=== PATIENT | female | born 1980 | race Caucasian/White ===

== ENCOUNTER 2016-05-06 16:57 | Emergency (ER) | payer OTHER, MEDICAID ==
[~2016-05-06] VITALS: Ht 157.5 cm; Wt 86.2 kg
[~2016-05-06 16:57] MED LIST: ACET500T68 PO; AMLO10TA2 PO; FLUO40CA9 PO; HYDR25TA9 PO; LISI40TA PO; MEDR150D3 IM; TRIA100A TP; VENTOLIN HFA18 GM INH
[2016-05-06 17:53] VITALS: BP 211/136
[2016-05-06] MEDS ORDERED: ONDANSETRON ODT 4 MG TAB.RAPDIS PO ONE (18:00)
[2016-05-06] MEDS ORDERED: LIDO:MAALOX:DONNATAL 1:1:1 15 ML SINGLE DOSE SWSW ONE (18:00)
--- NOTE | 2016-05-06 18:09 | PHYS DOC ---
Past Medical History Past Medical History: Asthma, Bipolar, Bronchitis, Gallstones, Hypertension Past Surgical History: No Surgical History Alcohol Use: None Drug Use: None Adult General Chief Complaint Chief Complaint: ABDOMINAL PAIN HPI HPI 36-year-old female presenting to the emergency department today with epigastric abdominal pain that is sharp intermittent and has been present for greater than a month. She has had one episode of nonbilious nonbloody vomiting. She denies constipation or diarrhea. She denies fevers chills. The pain radiates to her back. It is worse with food. She denies drinking regularly. She has a history of gallstones. Review of systems is negative for chest pain shortness of breath fevers chills. Positive for abdominal pain. All other review of systems is negative unless otherwise noted in history of present illness. Review of Systems Review of Systems SEE ABOVE Current Medications Current Medications Current Medications Medications (Trade) Dose Ordered Sig/Vita Start Time Stop Time Status Last Admin Dose Admin Metoprolol Tartrate (Lopressor) 50 mg 1X ONCE 05/06/16 21:00 05/06/16 21:01 DC Morphine Sulfate 2 mg 2 mg PRN Q2HR PRN 05/06/16 20:45 05/06/16 21:49 DC Multi-Ingredient Mouthwash/Gargle (Gi Cocktail Single Dose) 15 ml 1X ONCE 05/06/16 18:00 05/06/16 18:01 DC 05/06/16 18:16 15 ML Ondansetron HCl (Zofran Odt) 4 mg 1X ONCE 05/06/16 18:00 05/06/16 18:01 DC 05/06/16 18:17 4 MG Ondansetron HCl (Zofran) 4 mg PRN Q8HRS PRN 05/06/16 20:45 05/06/16 21:49 DC Potassium Chloride (Klor-Con) 40 meq 1X ONCE 05/06/16 21:00 05/06/16 21:01 DC 05/06/16 21:33 40 MEQ Sodium Chloride (Iv Sodium Chloride 0.9% 1000ml Bag) 1,000 ml @ 1,000 mls/hr 1X ONCE 05/06/16 21:00 05/06/16 21:49 DC Allergies Allergies Allergies Coded Allergies Type Severity Reaction Last Updated Verified No Known Drug Allergies 03/10/16 No Physical Exam Physical Exam Constitutional: Well developed, well nourished, no acute distress, non-toxic appearance. HENT: Normocephalic, atraumatic, bilateral external ears normal, oropharynx moist, no oral exudates, nose normal. [] Eyes: PERRLA, EOMI, conjunctiva normal, no discharge. [] Neck: Normal range of motion, no tenderness, supple, no stridor. Cardiovascular:Heart rate regular rhythm, no murmur [] Lungs & Thorax: Bilateral breath sounds clear to auscultation Abdomen: Soft, mild tenderness in the epigastric region. Negative McBurney's point. Negative Smyth sign. No rebound tenderness or guarding present. Nondistended. Skin: Warm, dry, no erythema, no rash. [] Back: No tenderness, no CVA tenderness. [] Extremities: No tenderness, no cyanosis, no clubbing, ROM intact, no edema. Neurologic: Alert and oriented X 3, normal motor function, normal sensory function, no focal deficits noted. [] Psychologic: Affect normal, judgement normal, mood normal. [] Current Patient Data Vital Signs Vital Signs Date Time Temp Pulse Resp B/P Pulse Ox O2 Delivery O2 Flow Rate FiO2 05/06/16 17:53 98.7 99 18 211/136 99 Room Air 98.7 Lab Values Laboratory Tests Test 05/06/16 18:00 05/06/16 18:07 05/06/16 18:21 White Blood Count 12.4x10^3/uL (4.0-11.0) H Red Blood Count 4.52x10^6/uL (3.50-5.40) Hemoglobin 12.7g/dL (12.0-15.5) Hematocrit 38.6% (36.0-47.0) Mean Corpuscular Volume 85fL (79-100) Mean Corpuscular Hemoglobin 28pg (25-35) Mean Corpuscular Hemoglobin Concent 33g/dL (31-37) Red Cell Distribution Width 15.6% (11.5-14.5) H Platelet Count 206x10^3/uL (140-400) Neutrophils (%) (Auto) 76% (31-73) H Lymphocytes (%) (Auto) 15% (24-48) L Monocytes (%) (Auto) 6% (0-9) Eosinophils (%) (Auto) 2% (0-3) Basophils (%) (Auto) 1% (0-3) Neutrophils # (Auto) 9.4x10^3uL (1.8-7.7) H Lymphocytes # (Auto) 1.9x10^3/uL (1.0-4.8) Monocytes # (Auto) 0.8x10^3/uL (0.0-1.1) Eosinophils # (Auto) 0.2x10^3/uL (0.0-0.7) Basophils # (Auto) 0.1x10^3/uL (0.0-0.2) Sodium Level 144mmol/L (136-145) Potassium Level 2.8mmol/L (3.5-5.1) *L Chloride Level 105mmol/L (98-107) Carbon Dioxide Level 23mmol/L (21-32) Anion Gap 16 (6-14) H Blood Urea Nitrogen 15mg/dL (7-20) Creatinine 2.4mg/dL (0.6-1.0) H Estimated GFR (Cockcroft-Gault) 22.8 BUN/Creatinine Ratio 6 (6-20) Glucose Level 86mg/dL (70-99) Calcium Level 9.2mg/dL (8.5-10.1) Total Bilirubin 0.3mg/dL (0.2-1.0) Aspartate Amino Transferase (AST) 26U/L (15-37) Alanine Aminotransferase (ALT) 28U/L (14-59) Alkaline Phosphatase 129U/L (46-116) H Total Protein 7.1g/dL (6.4-8.2) Albumin 2.4g/dL (3.4-5.0) L Albumin/Globulin Ratio 0.5 (1.0-1.7) L Lipase 178U/L (73-393) Urine Collection Type Unknown Urine Color Yellow Urine Clarity Clear Urine pH 6.5 Urine Specific [place] 1.020 Urine Protein >=300mg/dL (NEG-TRACE) Urine Glucose (UA) Negativemg/dL (NEG) Urine Ketones (Stick) Negativemg/dL (NEG) Urine Blood Small (NEG) Urine Nitrite Negative (NEG) Urine Bilirubin Negative (NEG) Urine Urobilinogen Dipstick 0.2mg/dL (0.2 mg/dL) Urine Leukocyte Esterase Negative (NEG) Urine RBC 6-10/HPF (0-2) Urine WBC 1-4/HPF (0-4) Urine Squamous Epithelial Cells Few/LPF Urine Transitional Epithelial Cells Few/LPF Urine Bacteria Few/HPF (0-FEW) Urine Hyaline Casts Moderate/HPF Urine Waxy Casts Few/HPF Urine Mucus Slight/LPF POC Urine HCG, Qualitative Hcg negative (Negative) Laboratory Tests 05/06/16 18:00 Laboratory Tests 05/06/16 18:00 EKG EKG EKG shows sinus rhythm with a regular rate. QRS is within normal limits. Otherwise intervals within normal limits. ST segments congruent. [] Radiology/Procedures Radiology/Procedures [] Course & Med Decision Making Course & Med Decision Making Pertinent Labs and Imaging studies reviewed. (See chart for details) [] 36-year-old female presenting to the emergency department with epigastric abdominal pain with a history of gallstones. Vital signs afebrile with significant hypertension. Otherwise unremarkable. Physical exam shows minimal tenderness in the epigastrium without rebound tenderness or guarding. Nontender gallbladder. Bloodwork showed mild leukocytosis. Hemoglobin within normal limits. Urinalysis shows dehydration with mild protein in the urine. Not suggestive of infection. negative. Chemistry panel shows hypokalemia at 2.8. Also creatinine elevated 2.4 increased from previous by proximally 0.5.. Ultrasound showed mildly increased, bile duct without elevation of liver function tests. Sludge present in the gallbladder.. Blood pressure was elevated. No evidence of end organ damage or insufficiency. The patient was able to take her oral lisinopril here in the emergency department. Given her low potassium and elevated white blood cell count I offered the patient admission to the hospital for potassium treatment and serial abdominal exams. The patient declined. She demonstrated medical capacity to make decisions. She stated she had potassium pills to take at home. No EKG changes on EKG. The patient and left AGAINST MEDICAL ADVICE. I recommended she come back to our hospital if she desired to be admitted or to follow-up with her primary care doctor tomorrow morning. Dragon Disclaimer Dragon Disclaimer This electronic medical record was generated, in whole or in part, using a voice recognition dictation system. Departure Departure Impression: Primary Impression: Epigastric abdominal pain Additional Impressions: Hypokalemia Hypertension Uncontrolled hypertension Disposition: HOME, SELF-CARE Condition: STABLE Referrals: NO PCP (PCP) ERLINDA DAWKINS MD Patient Instructions: Abdominal Pain (Nonspecific) Additional Instructions: Thank you for allowing us to participate in your care today. Followup with your primary care physician tomorrow. Return to the emergency department you have any new or concerning findings. This should be evaluated by the primary care physician and any necessary consulting services for continued management within a few days after discharge. Return to emergency room if you have any new or concerning symptoms including but not limited to fever, chills, nausea, vomiting, intractable pain, any new rashes, chest pain, shortness of air, uncontrolled bleeding, difficulty breathing, and/or vision loss. Be careful as some of the medications that are prescribed in the emergency department can cause drowsiness and fatigue. Do not drive on medications that can cause drowsiness. Some of these medications include Benadryl or hydrocodone. Be sure to check with her pharmacist about any medications you were prescribed today regarding this. Problem Qualifiers FADY DENT MD May 06, 2016 18:09
[2016-05-06 18:24] LABS: BASO # 0.1 x10^3/uL (0.0-0.2); BASO % 1 % (0-3); EOS % 2 % (0-3); HEMATOCRIT 38.6 % (36.0-47.0); HEMOGLOBIN 12.7 g/dL (12.0-15.5); LYMPH # 1.9 x10^3/uL (1.0-4.8); LYMPH % 15 % (24-48); MEAN CORPUSCULAR HEMOGLOBIN 28 pg (25-35); MEAN CORPUSCULAR HGB CONC 33 g/dL (31-37); MEAN CORPUSCULAR VOLUME 85 fL (79-100); MONO % 6 % (0-9); NEUT % 76 % (31-73); PLATELET COUNT 206 x10^3/uL (140-400); RED BLOOD COUNT 4.52 x10^6/uL (3.50-5.40); RED CELL DISTRIBUTION WIDTH 15.6 % (11.5-14.5); WHITE BLOOD COUNT 12.4 x10^3/uL (4.0-11.0)
[2016-05-06 18:37] LABS: BILIRUBIN,URINE NEGATIVE (NEG); GLUCOSE,URINE NEGATIVE (NEG); NITRITE,URINE NEGATIVE (NEG); PH,URINE 6.5; PROTEIN,URINE >=300 mg/dL (NEG-TRACE); UROBILINOGEN,URINE 0.2 mg/dL (0.2 mg/dL)
[2016-05-06 18:44] LABS: ALBUMIN 2.4 g/dL (3.4-5.0); ALBUMIN/GLOBULIN RATIO 0.5 (1.0-1.7); CALCIUM 9.2 mg/dL (8.5-10.1); CREATININE 2.4 mg/dL (0.6-1.0); GFR 22.8; TOTAL BILIRUBIN 0.3 mg/dL (0.2-1.0); TOTAL PROTEIN 7.1 g/dL (6.4-8.2)
[2016-05-06 18:48] LABS: BACTERIA,URINE FEW /HPF (0-FEW); SQUAMOUS EPITHELIAL CELL,UR FEW /LPF
[2016-05-06 18:49] LABS: POTASSIUM 2.8 mmol/L (3.5-5.1)
--- NOTE | 2016-05-06 20:18 | RAD ---
Examination: Ultrasound abdomen limited HISTORY History of right upper quadrant pain, nausea, vomiting. Comparison: none FINDINGS The liver measures 13.8 centimeters. There is mild diffuse increased echogenicity noted throughout the liver likely hepatic steatosis. The gallbladder is mildly distended. The common bile duct measures 6 millimeters in transverse dimension at the level of the pancreas. Mild echogenicity identified within the gallbladder probably sludge. There is a minimal prominence of the intrahepatic bile ducts. The pancreas is poorly visualized due to bowel gas. The right kidney measures 10.3 centimeters in length. Echogenic appearing right kidney likely due to medical renal disease. IMPRESSION 1. The common bile duct measures 6 millimeters in transverse dimension of the level of the head of pancreas which is upper limits of normal or minimal prominence. Correlate with liver function test. 2. Increased echogenicity noted throughout the liver likely hepatic steatosis. 3. Some minimal echogenicity identified in the gallbladder likely sludge. The examination is positive for ultrasonographic evidence of Smyth's sign. However no evidence of pericholecystic fluid or gallbladder wall thickening identified to suggest acute cholecystitis. Clinical correlation is suggested. 4. Echogenic appearing right kidney likely due to medical renal disease. Electronically signed by: Smooth Valencia (May 06, 2016 20:06:12)
[2016-05-06] MEDS ORDERED: ONDANSETRON PF 4 MG/2 ML VIAL. IV PRN (20:45)
[2016-05-06] MEDS ORDERED: MORPHINE SULFATE 2 MG/ML DISP.SYRIN. IV PRN (20:45)
[2016-05-06] MEDS ORDERED: METOPROLOL TART IMMED RELEASE 25 MG TABLET PO ONE (21:00)
[2016-05-06] MEDS ORDERED: IV NORMAL SALINE 1000ML BAG 1,000 ML IV ONE (21:00)
[2016-05-06] MEDS ORDERED: POTASSIUM CHLORIDE 20 MEQ TABLET.ER. PO ONE (21:00)
--- NOTE | 2016-05-07 09:38 | EKG ---
[facility] [address] [place] [address] Test Date: 2016-05-06 Test Time: 21:26:57 Pat Name: LARA DOYLE Department: Room: Gender: F Assistant Research Scientist: : [id number] Requested By: FADY DENT Order Number: [id number] Reading MD: Ghulam Davila Measurements Intervals [place] Rate: 94 P: 24 FL: 154 QRS: -4 QRSD: 94 T: 40 QT: 380 QTc: 475 Interpretive Statements SINUS RHYTHM LEFT ATRIAL ABNORMALITY LEFTWARD AXIS QRS(T) CONTOUR ABNORMALITY CONSIDER ANTEROLATERAL MYOCARDIAL DAMAGE CONSISTENT WITH INFERIOR INFARCT PROBABLY OLD RI6.01 Unconfirmed report Electronically Signed On 05-08-2016 14:08:15 DIET CONSULTANT by Ghulam Davila
== END 2016-05-06 21:45 | disposition left against medical advice (07) ==
LOC: ER 16:57
DX: R10.13 Epigastric pain (principal); J45.909 Unspecified asthma, uncomplicated; I10 Essential (primary) hypertension; E87.6 Hypokalemia
CPT/HCPCS: 36415; 76705; 80053; 81001; 81025; 83690; 85027; 93005; 99285; Q0162